=== PATIENT | female | born 1995 | race Two or more races ===

== ENCOUNTER 2018-03-13 20:58 | Emergency (ER) | payer OTHER ==
[2018-03-13] MEDS ORDERED: Amoxicillin/Clavulanate TAB* 875 MG PO ONE (22:27)
[2018-03-13] MEDS ORDERED: Ibuprofen TAB* 600 MG PO ONE (22:27)
[2018-03-13] MEDS ORDERED: Tetan/Diph/Pertus SYR(Tdap)* 0.5 ML SYR(BOOSTRIX) use SYR IM ONE (22:28)
--- NOTE | 2018-03-13 22:29 | ED ---
Upper Extremity Pain - HPI Summary HPI Summary: Patient works at [employer], complains of squirrel bite to right hand from [employer] resident squirrel with subsequent swelling pain and erythema. Bite occurred at 11 AM this morning.. Patient was feeding squirrel and was bitten. Squirrel up-to-date on vaccinations. Tetanus status unknown. - History of Current Complaint Chief Complaint: EDAnimalBite Stated Complaint: ANIMAL BITE Time Seen by Provider: 03/13/18 22:09 Hx Obtained From: Patient Mechanism Of Injury: Other Onset/Duration: Started Hours Ago Timing: Constant Severity Initially: Moderate Severity Currently: Moderate Pain Location: Hand Character: Aching, Throbbing Aggravating Factor(s): Movement Alleviating Factor(s): Nothing Associated Signs & Symptoms: Positive: Swelling, Redness, Bruising - Allergies/Home Medications Allergies/Adverse Reactions: Allergies Allergy/AdvReac Type Severity Reaction Status Date / Time No Known Allergies Allergy Verified 03/13/18 21:11 PMH/Surg Hx/FS Hx/Imm Hx Endocrine/Hematology History: Denies: Hx Diabetes Cardiovascular History: Denies: Hx Hypertension, Hx Pacemaker/ICD History: Denies: Hx Renal Disease Sensory History: Denies: Hx Hearing Aid Psychiatric History: Denies: Hx Panic Disorder - Immunization History Date of Tetanus Vaccine: unknown Immunizations Up to Date: Unable to Obtain/Confirm Infectious Disease History: No Infectious Disease History: Reports: Traveled Outside the [place] in Last 30 Days - [place] - Social History Alcohol Use: None Substance Use Type: Reports: None Smoking Status (MU): Never Smoked Tobacco Review of Systems Constitutional: Negative Eyes: Negative ENT: Negative Cardiovascular: Negative Respiratory: Negative Gastrointestinal: Negative Genitourinary: Negative Musculoskeletal: Negative Skin: Other Neurological: Negative Psychological: Normal All Other Systems Reviewed And Are Negative: Yes Physical Exam - Summary Physical Exam Summary: Scratch chen to dorsal surface of right hand. 2 small scabbed over puncture chen to second and third MCP joints. Positive erythema to dorsal surface of right hand. Patient states she washed her wounds with hydrogen peroxide at time of bite. Patient has full range of motion of right hand and wrist. Triage Information Reviewed: Yes Vital Signs On Initial Exam: Initial Vitals Temp Pulse Resp BP Pulse Ox 99.3 F 52 16 105/52 100 03/13/18 21:05 03/13/18 21:05 03/13/18 21:05 03/13/18 21:05 03/13/18 21:05 Vital Signs Reviewed: Yes Appearance: Positive: Well-Appearing Skin: Positive: Warm Head/Face: Positive: Normal Head/Face Inspection Eyes: Positive: Normal Neck: Positive: Supple Respiratory/Lung Sounds: Positive: Clear to Auscultation Cardiovascular: Positive: Normal Abdomen Description: Positive: Nontender Musculoskeletal: Positive: Normal Neurological: Positive: Normal Psychiatric: Positive: Normal AVPU Assessment: Alert - Brad Coma Scale Best Eye Response: 4 - Spontaneous Best Motor Response: 6 - Obeys Commands Best Verbal Response: 5 - Oriented Coma Scale Total: 15 Diagnostics - Vital Signs Vital Signs Temp Pulse Resp BP Pulse Ox 03/13/18 21:05 99.3 F 52 16 105/52 100 - Laboratory Lab Statement: Any lab studies that have been ordered have been reviewed, and results considered in the medical decision making process. Course/Dx - Course Course Of Treatment: Patient works at [employer], complains of squirrel bite to right hand from [employer] resident squirrel with subsequent swelling pain and erythema. Bite occurred at 11 AM this morning.. Patient was feeding squirrel and was bitten. Squirrel up-to-date on vaccinations. Tetanus status unknown. Physical exam:Scratch chen to dorsal surface of right hand. 2 small scabbed over puncture chen to second and third MCP joints. Positive erythema to dorsal surface of right hand. Patient states she washed her wounds with hydrogen peroxide at time of bite. Patient has full range of motion of right hand and wrist. Vital signs within normal limits. Patient started on Augmentin. Tetanus booster. - Diagnoses Differential Diagnosis/HQI/PQRI: Positive: Arthritis, Bursitis, Hematoma Provider Diagnoses: Animal bite Discharge - Sign-Out/Discharge Documenting (check all that apply): Patient Departure - Discharge Plan Condition: Stable Disposition: HOME Prescriptions: Amoxicillin/Clavulanate TAB* [Augmentin TAB 875*] 875 mg PO BID #20 tab Patient Education Materials: Animal Bite (ED) Referrals: Savana Curry NP [Primary Care Provider] - Additional Instructions: Take antibiotics as directed. Return to the ED for any new or worsening symptoms - Billing Disposition and Condition Condition: STABLE Disposition: Home
[2018-03-13 22:41] VITALS: BP 103/65
== END 2018-03-13 22:40 | disposition home or self-care (01) ==
LOC: ED 20:58
DX: S61.431A Puncture wound without foreign body of right hand, initial encounter (principal); W53.21XA Bitten by squirrel, initial encounter; Y92.89 Other specified places as the place of occurrence of the external cause; Z23 Encounter for immunization
CPT/HCPCS: 90471; 90715; 99282; A9270-GY